=== PATIENT | male | born 1995 | race Caucasian/White ===

== ENCOUNTER 2023-05-20 09:19 | Emergency (ER) | payer MEDICAID, OTHER ==
[~2023-05-20] VITALS: Ht 185.4 cm; Wt 194.0 kg
[2023-05-20 10:46] LABS: BASO % 0.1 % (0.0-1.0); EOS % 0.1 % (0.0-3.0); HEMATOCRIT 43.6 % (42.0-52.0); LYMPH # 1.3 10^3/uL (1.5-5.0); LYMPH % 14.7 % (24.0-44.0); MEAN CORPUSCULAR HEMOGLOBIN 29.9 pg (27.0-33.0); MEAN CORPUSCULAR HGB CONC 34.4 g/dl (32.0-36.5); MONO # 0.8 10^3/uL (0.0-0.8); NEUTROPHILS # 6.6 10^3/uL (1.5-8.5); NEUTROPHILS % 75.8 % (36.0-66.0); PLATELET COUNT, AUTOMATED 266 10^3/uL (150-450); RED BLOOD COUNT 5.01 10^6/uL (4.30-6.10); WHITE BLOOD COUNT 8.7 10^3/uL (4.0-10.0)
[2023-05-20] MEDS: NS 1,000 ML IV ONE ×2 (11:00→13:45)
[2023-05-20 11:10] LABS: INR 1.1; PROTHROMBIN TIME 13.9 SECONDS (12.5-14.5)
[2023-05-20 11:11] LABS: PARTIAL THROMBOPLASTIN TIME 30.4 SECONDS (24.8-34.2)
[2023-05-20 11:42] LABS: ALBUMIN 3.5 G/DL (3.2-5.2); BILIRUBIN,DIRECT 0.3 MG/DL (<0.4); BILIRUBIN,TOTAL 0.7 MG/DL (0.3-1.2)
[2023-05-20 11:55] LABS: RSV AMPLIFICATION NEGATIVE (NEGATIVE)
[2023-05-20] MEDS ORDERED: ISOVUE-370 76% 100ML VIAL As Ordered ONE (12:03)
[2023-05-20] MEDS: KETOROLAC 30 MG/ML 1ML VIAL IV ONE (14:20)
[2023-05-20 14:56] VITALS: BP 150/86; TEMP 97.5; O2SAT 96
== END 2023-05-20 15:32 | disposition home or self-care (01) ==
LOC: M ED 09:19
DX: U07.1 COVID-19 (principal); A04.5 Campylobacter enteritis; I10 Essential (primary) hypertension; Z91.018 Allergy to other foods
CPT/HCPCS: 74174; 80047; 80076; 83690; 85025; 85610; 85730; 86850; 86900; 86901; 87507; 87631; 93005; 93041; 94760; 96374; 99285; J1885; Q9967